=== PATIENT | female | born 1995 | race Caucasian/White ===

== ENCOUNTER 2020-09-22 19:58 | Inpatient (IN) ==
[2020-09-22 20:53] LABS: Urine Appearance Cloudy; Urine Bilirubin Negative (Negative); Urine Blood Negative (Negative); Urine Color Yellow; Urine Glucose Negative (Negative); Urine Ketones Negative (Negative); Urine Nitrite Negative (Negative); Urine Protein Negative (Negative); Urine Specific Gravity 1.019 (1.002-1.030); Urine Urobilinogen Negative (Negative)
[2020-09-22 21:10] LABS: Urine Benzodiazepine Screen None Detected (None Detect); Urine Cannabinoids Screen Presumptive Positive (None Detect); Urine Opiates Screen None Detected (None Detect)
[2020-09-22 21:31] LABS: ABS Eosinophils 0.1 10^3/ul (0-0.6); ABS Lymphocytes 4.2 10^3/ul (1.0-4.8); ABS Monocytes 0.6 10^3/ul (0-0.8); ABS Neutrophils 5.6 10^3/ul (1.5-7.7); Eosinophil % 1.2 %; Hematocrit 39 % (35-47); Mean Corpuscular HGB Conc 36 g/dL (31-36); Mean Corpuscular Hemoglobin 32 pg (27-31); Mean Corpuscular Volume 88 fL (80-97); Mean Platelet Volume 8.4 fL (7.4-10.4); Nucleated Red Blood Cells % 0.1; Platelet Count 265 10^3/uL (150-450); Red Blood Count 4.44 10^6 /uL (3.70-4.87); Red Cell Distribution Width 13 % (10-15); White Blood Count 10.6 10^3/uL (3.5-10.8)
[2020-09-22 21:42] LABS: ALT 16 U/L (7-52); AST 15 U/L (13-39); Acetaminophen < 15 mcg/mL; Albumin/Globulin Ratio 1.3 (1-3); Alcohol, S 89 mg/dL (<10); Alkaline Phosphatase 68 U/L (35-149); Anion Gap 8 mmol/L (2-11); Blood Urea Nitrogen 11 mg/dL (6-24); CO2 Carbon Dioxide 22 mmol/L (22-32); Calcium 8.6 mg/dL (8.6-10.3); Chloride 106 mmol/L (101-111); EGFR African American 127.6 (>60); EGFR Non-African American 105.4 (>60); Glucose 100 mg/dL (70-100); Potassium 3.3 mmol/L (3.5-5.0); Salicylate < 2.50 mg/dL (<30); Sodium 136 mmol/L (135-145)
[2020-09-22 21:57] LABS: TSH Ultra Thyroid Stim Horm 3.31 mcIU/mL (0.34-5.60)
[2020-09-23] MEDS ORDERED: Al Hydrox/Mg Hydrox/Simet LIQ 30 ML UDC PO PRN (03:07)
[2020-09-23] MEDS: Vitamin THERAPEUTIC TAB PO SCH (08:20)
[2020-09-23] MEDS: Venlafaxine XR 75 mg PO SCH (08:20)
[2020-09-23 11:19] LABS: HCG Pregnancy 0.67 mIU/mL
[2020-09-24 07:58] LABS: HDL Cholesterol 43.9 mg/dL
[2020-09-24] MEDS: Vitamin THERAPEUTIC TAB PO SCH (08:14)
[2020-09-24] MEDS: Venlafaxine XR 75 mg PO SCH (08:14)
[2020-09-25] MEDS: Vitamin THERAPEUTIC TAB PO SCH (08:30)
[2020-09-25] MEDS: Venlafaxine XR 75 mg PO SCH (08:30)
[2020-09-26] MEDS: Venlafaxine XR 75 mg PO SCH (08:47)
[2020-09-26] MEDS: Vitamin THERAPEUTIC TAB PO SCH (08:48)
[2020-09-27] MEDS: Vitamin THERAPEUTIC TAB PO SCH (08:55)
[2020-09-27] MEDS: Venlafaxine XR 75 mg PO SCH (08:55)
[2020-09-28] MEDS: Vitamin THERAPEUTIC TAB PO SCH (09:06)
[2020-09-28] MEDS: Venlafaxine XR 75 mg PO SCH (09:06)
[2020-09-29] MEDS: Venlafaxine XR 75 mg PO SCH (08:16)
[2020-09-29] MEDS: Vitamin THERAPEUTIC TAB PO SCH (08:16)
[2020-09-29 08:53] VITALS: BP 140/87
== END 2020-09-29 12:14 | disposition home or self-care (01) | DRG 753 ==
LOC: ED 19:58 → BSU 09-23 01:20
PROVIDERS: ADMIT Psychiatry & Neurology Psychiatry; ATTEND Psychiatry & Neurology Psychiatry